=== PATIENT | female | born 1960 | race Caucasian/White ===

== ENCOUNTER 2016-09-12 08:11 | Outpatient (CLI) ==
[2016-06-24 14:13] VITALS: BMI 35.4
[2016-09-12 13:49] LABS: BASOPHILS # (AUTO) 0.1 K/uL (0-0.2); BASOPHILS % (AUTO) 1.5 % (0.0-3.0); EOSINOPHILS # (AUTO) 0.3 K/ul (0.0-0.7); EOSINOPHILS % (AUTO) 4.4 % (0.0-7.0); HEMATOCRIT 45.5 % (37.0-47.0); HEMOGLOBIN 15.7 g/dl (12.0-16.0); IMMATURE GRANULOCYTE % (AUTO) 0.4 % (0.0-5.0); LYMPHOCYTES # (AUTO) 2.4 K/uL (0.60-3.4); LYMPHOCYTES % (AUTO) 33.4 (10.0-50.0); MEAN CORPUSCULAR HEMOGLOBIN 31.8 pg (27.0-31.0); MEAN CORPUSCULAR HGB CONC 34.5 (31.8-35.4); MEAN CORPUSCULAR VOLUME 92.1 fl (81.0-99.0); MONOCYTES # (AUTO) 0.8 K/uL (0.4-2.0); MONOCYTES % (AUTO) 10.4 (0-10); NEUTROPHILS # (AUTO) 3.6 K/ul (2.0-6.9); NEUTROPHILS % (AUTO) 49.9; PLATELET COUNT 236 10^3/uL (140-440); RED BLOOD COUNT 4.94 10^6/ul (4.20-5.40); WHITE BLOOD COUNT 7.22 K/ul (4.6-10.2)
[2016-09-12 14:36] LABS: ALBUMIN 4.1 g/dL (3.4-5.0); ALBUMIN/GLOBULIN RATIO 1.52; ANION GAP 14.7; BILIRUBIN,TOTAL 0.51 mg/dL (0.00-1.20); BUN/CREATININE RATIO 17.33; CALCIUM 9.7 mg/dL (8.2-10.2); CHOL/HDL RATIO 3.5 (4.5-5.5); CREATININE 0.75 mg/dL (0.60-1.30); POTASSIUM 3.7 mmol/L (3.5-5.10); TOTAL PROTEIN 6.8 g/dL (6.4-8.2)
== END 2016-09-12 08:12 | disposition home or self-care (01) ==
LOC: LAB 08:11
PROVIDERS: ATTEND Nurse Practitioner Family
DX: E11.9 Type 2 diabetes mellitus without complications (principal); E78.1 Pure hyperglyceridemia; J44.9 Chronic obstructive pulmonary disease, unspecified
CPT/HCPCS: 36415; 80053; 80061; 83036; 84443; 85025

== ENCOUNTER 2016-11-15 12:05 | Outpatient (CLI) | payer OTHER ==
[2016-11-15 12:19] VITALS: BMI 35.4
== END 2016-11-15 12:06 ==
LOC: AMBL 12:05
PROVIDERS: ATTEND Emergency Medicine
DX: M25.512 Pain in left shoulder (principal)

== ENCOUNTER 2016-11-15 12:18 | Emergency (ER) ==
[2016-11-15 12:19] VITALS: BMI 35.4
[2016-11-15 12:25] VITALS: BP 144/73; TEMP 96.9
--- NOTE | 2016-11-15 12:32 | ED.PDOC ---
General ED Provider: Dr. ARRON ADAMS JR Chief Complaint: Shoulder Pain/Injury Stated Complaint: helped set up yard sale on monday--since has developed pain to left shoulder--has pain intermittently--when takes ibuprofen and applies heat --helps pain--. [ End ]96.9 62 20 96% 144/73 03/19. ibuprofen/heating pad. knee pain--back problems. states follows with [facility] FOR MEDS AND DIABETES - AKISTHESIS NOTE REPORT OF NOT ON MEDICAITONS Time Seen by Physician: 12:32 Mode of Arrival: Stretcher Information Source: Patient Exam Limitations: Clinical condition Nursing and Triage Documentation Reviewed and Agree: No Review of Systems - Review Of Systems Constitutional: Reports: Malaise Eyes: Reports: No symptoms Ears, Nose, Mouth, Throat: Reports: No symptoms Respiratory: Reports: No symptoms Cardiac: Reports: No symptoms GI: Reports: No symptoms : Reports: Pain (NONFOCAL NOT WORSE WITH BM NOR VOIDING, NOT SEXUALLY ACTIVE) Musculoskeletal: Reports: Joint pain Skin: Reports: No symptoms Neurological: Reports: No symptoms Endocrine: Reports: No symptoms Hematologic/Lymphatic: Reports: No symptoms All Other Systems: Other Past Medical History - Past Medical History Previously Healthy: No Endocrine: Reports: DM 2, Dyslipidemia Cardiovascular: Reports: None Respiratory: Reports: COPD, Pneumonia Hematological: Reports: None Gastrointestinal: Reports: None Genitourinary: Reports: None Neuro/Psych: Reports: None Musculoskeletal: Reports: None Cancer: Reports: None Last Menstrual Period: menopause Other Pertinent Past Medical History: BACK SURGERIES, KNEE REPLACEMENT.DM COPD - Surgical History General Surgical History: Reports: Orthopedic (KNEE REPLACEMENT), Back Surgery ( BACK SURGERIES), Unknown - Family History Family History: Reports: Unknown - Social History Smoking Status: Current every day smoker, Heavy tobacco smoker Hx Substance Use: No Alcohol Screening: None Physical Exam - Physical Exam Appearance: Well-appearing Pain Distress: Moderate Eyes: RYAN, EOMI, Conjunctiva clear ENT: Ears normal, Nose normal, Oropharynx normal Respiratory: Airway patent, Breath sounds clear, Breath sounds equal, Respirations nonlabored Cardiovascular: RRR, Pulses normal, No rub, No murmur GI/: Soft, Nontender (note complains of genital pain defer to obgyn), No masses, Bowel sounds normal, No Organomegaly Musculoskeletal: Limited ROM (left shoulder subscapularis tenderness) Skin: Warm, Dry, Normal color Neurological: Sensation intact, Motor intact, Reflexes intact, Cranial nerves intact, Alert, Oriented Psychiatric: Anxious (akethitic motions) Re-Evaluation - Re-Evaluation Time of Re-Evaluation: 14:14 Status: Unchanged (discuss schizophernia- hearing voices nothing from dr pedroza works not willing to go back) Critical Care Note - Critical Care Note Total Time (mins): 0 Course - Course Orders, Labs, Meds: Orders Category Date Time Status SHOULDER, LEFT MIN 2V Stat RADS 11/15/16 12:31 Completed Vital Signs: Temp Pulse Resp BP Pulse Ox 11/15/16 12:19 96.9 F L 62 20 144/73 H 96 Departure - Departure Time of Disposition: 14:01 Disposition: HOME SELF-CARE Discharge Problem: Injury of shoulder region, Pelvic pain in female Instructions: Shoulder Sprain (ED), Pelvic Pain in Women (ED) Condition: Good Pt referred to PMD for follow-up: Yes Additional Instructions: Naprosyn twice a day as needed for pain daily range of motion shoulder follow up PMD discuss shoulder pain and 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
--- NOTE | 2016-11-15 13:03 | DI ---
EXAM: LEFT SHOULDER HISTORY: Shoulder pain FINDINGS: Left shoulder three-view. Glenohumeral joint appears normal. There is mild osteoarthriti s of the acromioclavicular joint. No joint separation or dislocation. Soft tissues within normal l imits. IMPRESSION: Early AC joint osteoarthritis.
== END 2016-11-15 14:16 | disposition home or self-care (01) ==
LOC: ED 12:18
DX: S43.402A Unspecified sprain of left shoulder joint, initial encounter (principal); R10.2 Pelvic and perineal pain; X50.1XXA Overexertion from prolonged static or awkward postures, initial encounter; F17.210 Nicotine dependence, cigarettes, uncomplicated
CPT/HCPCS: 99282

== ENCOUNTER 2017-01-02 08:52 | Outpatient (CLI) ==
[2016-06-24 14:13] VITALS: BMI 35.4
--- NOTE | 2017-01-02 11:02 | MAMMO ---
EXAM: Digital screening mammogram HISTORY: Screening COMPARISON: 11/23/2015 FINDINGS: Digital MLO and CC views of the right and left breast were performed. There are scatter ed fibroglandular densities. There is no evidence for mass, asymmetry, distortion, or suspicious ca lcifications in either breast. IMPRESSION: 1. No evidence of malignancy in the right or left breast. 2. Annual screening mammogram is recommended in one year. BIRADS category 1, negative examination
== END 2017-01-02 08:53 ==
LOC: RAD 08:52
PROVIDERS: ATTEND Nurse Practitioner Family
DX: Z12.31 Encounter for screening mammogram for malignant neoplasm of breast (principal)

== ENCOUNTER 2017-02-15 11:18 | Outpatient (CLI) ==
[2017-02-15 13:11] LABS: ALBUMIN 4.1 g/dL (3.4-5.0); ALBUMIN/GLOBULIN RATIO 1.46; ANION GAP 16.7; BILIRUBIN,TOTAL 0.6 mg/dL (0.00-1.20); BUN/CREATININE RATIO 8.43; CALCIUM 10.1 mg/dL (8.2-10.2); CHOL/HDL RATIO 3.7 (4.5-5.5); CREATININE 0.83 mg/dL (0.60-1.30); POTASSIUM 3.7 mmol/L (3.5-5.10); TOTAL PROTEIN 6.9 g/dL (6.4-8.2)
== END 2017-02-15 11:19 | disposition home or self-care (01) ==
LOC: LAB 11:18
PROVIDERS: ATTEND Nurse Practitioner Family
DX: E11.9 Type 2 diabetes mellitus without complications (principal); E78.2 Mixed hyperlipidemia
CPT/HCPCS: 36415; 80053; 80061; 83036

== ENCOUNTER 2017-02-17 08:22 | Outpatient (CLI) ==
--- NOTE | 2017-02-17 09:30 | CT ---
EXAM: CT Abdomen without contrast. CT Pelvis without contrast. HISTORY: Lower abdominal pain. COMPARISON: 09/19/2010. MRI 10/13/2010. TECHNIQUE: Multiple axial images of the abdomen and pelvis were obtained without intravenous contra st. Images were reformatted in the coronal plane. FINDINGS: Please note that evaluation of the abdominal and pelvic structures is limited due to lack of intravenous contrast. No acute abnormality identified in the lung bases. Degenerative changes present in the spine. The liver, gallbladder, pancreas, spleen, and adrenal glands demonstrate normal contour. A 0.4 cm n onobstructing left renal calculus is present. No hydronephrosis or perinephric inflammation identif ied. Duodenal diverticulum noted. There is no evidence for bowel obstruction or acute inflammation. The appendix is normal. Colonic diverticulosis is present. Tiny fat-containing umbilical hernia is id entified. Uterus demonstrates normal contour. Urinary bladder is unremarkable. No free fluid or f ree air identified. Atherosclerotic calcifications are present. IMPRESSION: 1. No acute abnormality in the abdomen or pelvis. 2. Left nephrolithiasis. 3. Diverticulosis.
== END 2017-02-17 08:23 | disposition home or self-care (01) ==
LOC: RAD 08:22
PROVIDERS: ATTEND Nurse Practitioner Family
DX: R10.9 Unspecified abdominal pain (principal)

== ENCOUNTER 2017-05-03 13:59 | Emergency (ER) | payer OTHER ==
[2017-05-03 13:59] VITALS: BMI 35.4
[2017-05-03 14:13] VITALS: BP 144/61; TEMP 97
--- NOTE | 2017-05-03 14:49 | CT ---
EXAM: CT of the cervical spine without contrast History: Neck pain. Technique: Multiplanar CT images through the cervical spine were obtained without the administration of IV contrast Findings: Centrilobular emphysema seen within the visualized upper lungs. The visualized airway rem ains patent. There is cerumen within the left external auditory canal. No acute fracture or subluxa tion of the cervical spine. Moderate to severe disc space narrowing at C6-7. Mild to moderate disc space narrowing seen elsewhere. There are large anterior osteophytes from C3 through C7. C2-3: No significant bony central canal stenosis. Mild to moderate bilateral bony neural foraminal na rrowing secondary to uncovertebral facet hypertrophy. C3-4: Mild bony central canal stenosis. Moderate to severe bilateral bony neural foraminal narrowin g secondary to uncovertebral and facet hypertrophy. C4-5: Mild bony central canal stenosis. Moderate to severe right and moderate left bony neural fora rosa narrowing secondary to uncovertebral and facet hypertrophy. C5-6: Mild bony central canal stenosis. Moderate to severe right and moderate left bony neural fora rosa narrowing secondary to uncovertebral and facet hypertrophy. C6-7: Mild to moderate bony central canal stenosis. Severe bilateral bony neural foraminal narrowin g secondary to uncovertebral and facet hypertrophy. Impression: 1. No acute osseous abnormality of the cervical spine. 2. Degenerative changes with level by level analysis as detailed above. 3. Large anterior osteophytes.
--- NOTE | 2017-05-03 14:55 | CT ---
EXAM: CT thoracic spine. HISTORY: Back pain without trauma, mainly in the neck. TECHNIQUE: CT thoracic spine without contrast. Multiplanar images. FINDINGS: Comparison may be made to 06/24/2016. Bones appear demineralized. No acute fracture is obvious. There is moderate degenerative endplate d isease extending from mid spine into the lumbar level. Mild loss of vertebral body height at these a ffected levels probably most apparent at T11. There is mild central canal stenosis at T11/T12. No s coliosis. Bridging anterior and lateral osteophytic spurring of the spine is present. There is no p araspinal fluid collection. Degenerative changes appear more severe at the cervical level. Incidental findings include a 0.5 cm left renal calculus without evidence of hydronephrosis. IMPRESSION: 1. Redemonstration of moderate to severe degenerative endplate disease mid spine through lumbar leve l with no acute fracture identified. There is mild central canal stenosis at T11/T12. More severe d egenerative changes of the cervical level incidentally noted. 2. Left nephrolithiasis without hydronephrosis.
--- NOTE | 2017-05-03 15:02 | ED.PDOC ---
General ED Provider: Dr. DANIEL SALEH-ER Chief Complaint: Back Pain Stated Complaint: my neck and upper back have been hurting a long time --when i move them Time Seen by Physician: 15:02 Mode of Arrival: Ambulance Information Source: Patient, EMT Exam Limitations: No limitations [facility] Nursing and Triage Documentation Reviewed and Agree: Yes Musculoskeletal Complaint Exam - Neck Pain Complaint/Exam Mechanism of Injury: Reports: No known trauma Onset/Duration: mos Symptoms Are: Still present Timing: Constant Initial Severity: Mild Current Severity: Moderate Location: Reports: Discrete Character: Reports: Dull, Aching, Stiffness Aggravating: Reports: Position Associated Signs and Symptoms: Denies: Swelling, Redness, Bruising, Fever, Nuchal rigidity, Weakness, Headache, Paresthesia Meningitis Risk Factors: Reports: None Cervical Spine Injury Risk Factors: Reports: None Related Surgical History: Reports: None Carotid Bruit Present: No Pain on Passive Flexion: No Positive Kernig's Sign: No ROM Limited In: Present: Flexion, Extension Pain Located at: neck and upper back Focal Weakness: Present: None Focal Sensory Loss: Reports: None Differential Diagnoses: Arthritis, Sprain, Strain Review of Systems - Review Of Systems Constitutional: Reports: No symptoms Eyes: Reports: No symptoms Ears, Nose, Mouth, Throat: Reports: No symptoms Respiratory: Reports: No symptoms Cardiac: Reports: No symptoms GI: Reports: No symptoms : Reports: No symptoms Musculoskeletal: Reports: Back pain, Muscle pain, Neck pain Skin: Reports: No symptoms Neurological: Reports: No symptoms Endocrine: Reports: No symptoms Hematologic/Lymphatic: Reports: No symptoms All Other Systems: Reviewed and Negative Past Medical History - Past Medical History Previously Healthy: No Endocrine: Reports: DM 2, Dyslipidemia Cardiovascular: Reports: None Respiratory: Reports: COPD, Pneumonia Hematological: Reports: None Gastrointestinal: Reports: None Genitourinary: Reports: None Neuro/Psych: Reports: None Musculoskeletal: Reports: None Cancer: Reports: None Last Menstrual Period: none Other Pertinent Past Medical History: BACK SURGERIES, KNEE REPLACEMENT.DM COPD - Surgical History General Surgical History: Reports: Orthopedic (KNEE REPLACEMENT), Back Surgery ( BACK SURGERIES), Unknown - Family History Family History: Reports: Unknown - Social History Smoking Status: Current every day smoker, Heavy tobacco smoker Hx Substance Use: No Alcohol Screening: None Lives: With family Physical Exam - Physical Exam Appearance: Well-appearing, No pain distress, Well-nourished Pain Distress: Mild Eyes: RYAN, EOMI, Conjunctiva clear ENT: Ears normal, Nose normal, Oropharynx normal Neck: Supple Respiratory: Airway patent, Breath sounds clear, Breath sounds equal, Respirations nonlabored Cardiovascular: RRR, Pulses normal, No rub, No murmur GI/: Soft, Nontender, No masses, Bowel sounds normal, No Organomegaly Musculoskeletal: Limited ROM Skin: Warm, Dry, Normal color Neurological: Sensation intact, Motor intact, Reflexes intact, Cranial nerves intact, Alert, Oriented Psychiatric: Affect appropriate, Mood appropriate Interpretation - Radiology Interpretation Radiology Interpretation By: Radiologist Radiology Results: Negative Exam Interpreted: CT Scan Critical Care Note - Critical Care Note Total Time (mins): 0 Course - Course Orders, Labs, Meds: Orders Category Date Time Status CT CERVICAL SPINE W/O CONTRAST Stat RADS 05/03/17 14:[address] THORACIC SPINE W/O CONTRAST Stat RADS 05/03/17 14:01 Completed Vital Signs: Temp Pulse Resp BP Pulse Ox 05/03/17 14:07 97.0 F L 65 16 144/61 H 96 Departure - Departure Time of Disposition: 15:04 Disposition: HOME SELF-CARE Discharge Problem: Degenerative arthritis Qualifiers: Osteoarthritis location: spine Spinal region: cervical Spinal osteoarthritis complication: unspecified spinal osteoarthritis Qualified Code(s): M47.812 - Spondylosis without myelopathy or radiculopathy, cervical region Instructions: Arthritis (ED) Condition: Fair Pt referred to PMD for follow-up: Yes Additional Instructions: neurontin 100mg tid for pain#21--f/u wtih pcp Allergies/Adverse Reactions: Allergies azithromycin Adverse Reaction (Verified 05/03/17 14:13) Home Medications: Ambulatory Orders [place]-3 Fatty Acids/Fish Oil [Fish Oil 1,000 mg Capsule] 1,000 each PO DAILY Disposition Discussed With: Patient
== END 2017-05-03 15:21 | disposition home or self-care (01) ==
LOC: ED 13:59
DX: M47.812 Spondylosis without myelopathy or radiculopathy, cervical region (principal); F17.210 Nicotine dependence, cigarettes, uncomplicated; M54.2 Cervicalgia; M54.9 Dorsalgia, unspecified
CPT/HCPCS: 99282

== ENCOUNTER 2017-08-22 11:34 | Outpatient (CLI) | END 2017-08-22 11:35 | disposition home or self-care (01) | LOC: LAB 11:34 | PROVIDERS: ATTEND Nurse Practitioner Family | DX: E11.9 Type 2 diabetes mellitus without complications (principal); E78.1 Pure hyperglyceridemia; E78.5 Hyperlipidemia, unspecified; J44.9 Chronic obstructive pulmonary disease, unspecified | CPT/HCPCS: 36415; 80053; 80061; 83036; 85025 ==

== ENCOUNTER 2017-09-08 13:24 | Inpatient (IN) ==
[2017-09-08] MEDS ORDERED: SOLU-MEDROL 125 MG IVP STA (13:34)
[2017-09-08] MEDS ORDERED: DUONEB NEB STA (13:42)
--- NOTE | 2017-09-08 14:35 | ED.PDOC ---
General ED Provider: Dr. LUCIANA STEPHENS Chief Complaint: Shortness of Air Stated Complaint: shotness of breath Time Seen by Physician: 13:28 (seen with nursing staff) Mode of Arrival: Walk-In Information Source: Patient Exam Limitations: No limitations [facility] Nursing and Triage Documentation Reviewed and Agree: Yes Reviewed sepsis parameters & appropriate labs ordered?: Yes (presented ) System Inflammatory Response Syndrome: Not Applicable Sepsis Protocol: For patient's 13 years and over: Temp is 96.8 and below OR 101 and greater Pulse >90 BPM Resp >20/minute Acutely Altered Mental Status Are patient's symptoms suggestive of a new infection, such as: -Pneumonia -Skin, Soft Tissue -Endocarditis -UTI -Bone, Joint Infection -Implantable Device -Acute Abdominal Infection -Wound Infection -Meningitis -Blood Stream Catheter Infection -Unknown System Inflammatory Response Syndrome: Not Applicable Respiratory Complaint Exam - Respiratory Complaint/Exam Onset/Duration: 2 days Symptoms Are: Still present Timing: Intermittent Initial Severity: Moderate Current Severity: Moderate Location: Throat, Chest Character: Reports: Non-productive cough Aggravating: Reports: None Alleviating: Reports: Spontaneous resolution Associated Signs and Symptoms: Reports: Wheezing, URI, Nasal congestion Related History: Reports: Similar episode History of Healthcare-Acquired Pneumonia: No Related Surgical History: Reports: None Pulmonary Embolism Risk Factors: None Cardiac Risk Factors: Reports: None Pseudomonas Risk Factors: Reports: None Tuberculosis Risk Factors: Reports: None Status Asthmaticus Risk Factors: Reports: None Home Oxygen Use: No Recent Stress Test: No Recent Echo/LV Function: No Current Antibiotic Use: No Current Asthma Medication Use: No Respiratory Distress: None Inadequate Respiratory Effort: No Dysphagia Present: No Stridor Present: No JVD Present: No Accessory Muscle Use: No Retractions: Not Present Diminished Breath Sounds: No Prolonged Respiration: Expiratory phase Sinus Tenderness: None Grunting Respirations: No Kussmaul Respirations: No Differential Diagnoses: Pneumonia, Bronchitis Non-Traumatic Chest Pain Syncope: EKG Performed Review of Systems - Review Of Systems Constitutional: Reports: Chills Eyes: Reports: Pain Ears, Nose, Mouth, Throat: Reports: No symptoms Respiratory: Reports: Cough, Wheezing Cardiac: Reports: No symptoms GI: Reports: No symptoms : Reports: No symptoms Musculoskeletal: Reports: No symptoms Skin: Reports: No symptoms Neurological: Reports: No symptoms Endocrine: Reports: No symptoms Hematologic/Lymphatic: Reports: No symptoms All Other Systems: Reviewed and Negative Past Medical History - Past Medical History Previously Healthy: No Endocrine: Reports: DM 2, Dyslipidemia Cardiovascular: Reports: None Respiratory: Reports: COPD, Pneumonia Hematological: Reports: None Gastrointestinal: Reports: None Genitourinary: Reports: None Neuro/Psych: Reports: None Musculoskeletal: Reports: None Cancer: Reports: None Last Menstrual Period: menopause Other Pertinent Past Medical History: BACK SURGERIES, KNEE REPLACEMENT.DM COPD - Surgical History General Surgical History: Reports: Orthopedic (KNEE REPLACEMENT), Back Surgery ( BACK SURGERIES), Unknown - Family History Family History: Reports: Unknown - Social History Smoking Status: Current every day smoker, Heavy tobacco smoker Hx Substance Use: No Alcohol Screening: None Physical Exam - Physical Exam Appearance: Ill-appearing Ill-appearing: Mild Pain Distress: Mild Eyes: RYAN, EOMI, Conjunctiva clear ENT: Ears normal, Nose normal, Oropharynx normal Respiratory: Airway patent, Breath sounds clear, Breath sounds equal, Respirations nonlabored Cardiovascular: RRR, Pulses normal, No rub, No murmur GI/: Soft, Nontender, No masses, Bowel sounds normal, No Organomegaly Musculoskeletal: Normal strength, ROM intact, No edema, No calf tenderness Skin: Warm, Dry, Normal color Neurological: Sensation intact, Motor intact, Reflexes intact, Cranial nerves intact, Alert, Oriented Psychiatric: Affect appropriate, Mood appropriate Interpretation - Radiology Interpretation Radiology Interpretation By: Radiologist Radiology Results: No acute changes Physician Notification - Case Discussed Physician Notified: PMD Time of Notification: 15:00 (IF PE NEGATIVE MAY GO TO [place] ) Admit To: Inpatient Critical Care Note - Critical Care Note Total Time (mins): 0 Course - Course Hematology/Chemistry: 09/08/17 13:40 09/08/17 13:40 Orders, Labs, Meds: Lab Review 09/08/17 09/08/17 09/08/17 13:40 13:40 13:45 WBC 5.09 RBC 4.59 Hgb 14.5 Hct 41.3 MCV 90.0 MCH 31.6 H MCHC 35.1 RDW Coeff of Saba 13.0 Plt Count 193 Immature Gran % (Auto) 0.2 Neut % (Auto) 38.3 Lymph % (Auto) 39.7 Menard % (Auto) 16.3 H Eos % (Auto) 3.9 Baso % (Auto) 1.6 Immature Gran # (Auto) 0.0 Neut # (Auto) 2.0 Lymph # (Auto) 2.0 Menard # (Auto) 0.8 Eos # (Auto) 0.2 Baso # (Auto) 0.1 Puncture Site O2 Saturation ABG pH ABG pCO2 ABG pO2 ABG HCO3 ABG Total CO2 ABG Base Excess Checo Test FiO2 % Sodium 141 Potassium 3.9 Chloride 107 Carbon Dioxide 24 Anion Gap 13.9 BUN 13 Creatinine 0.81 Estimated GFR (MDRD) 73.00 BUN/Creatinine Ratio 16.04 Glucose 121 H Calcium 9.7 Total Bilirubin < 0.3 AST 18 ALT 24 Alkaline Phosphatase 46 Total Creatine Kinase 103 Troponin I < 0.0100 Total Protein 6.8 Albumin 3.9 Globulin 2.9 Albumin/Globulin Ratio 1.34 Influ A Molecular Assay Negative by naat Influ B Molecular Assay Negative by naat 09/08/17 13:55 WBC RBC Hgb Hct MCV MCH MCHC RDW Coeff of Saba Plt Count Immature Gran % (Auto) Neut % (Auto) Lymph % (Auto) Menard % (Auto) Eos % (Auto) Baso % (Auto) Immature Gran # (Auto) Neut # (Auto) Lymph # (Auto) Menard # (Auto) Eos # (Auto) Baso # (Auto) Puncture Site R rad O2 Saturation 94.0 L ABG pH 7.433 ABG pCO2 37.2 ABG pO2 69.0 L ABG HCO3 24.9 ABG Total CO2 26 ABG Base Excess 1 Checo Test + FiO2 % 21.0 Sodium Potassium Chloride Carbon Dioxide Anion Gap BUN Creatinine Estimated GFR (MDRD) BUN/Creatinine Ratio Glucose Calcium Total Bilirubin AST ALT Alkaline Phosphatase Total Creatine Kinase Troponin I Total Protein Albumin Globulin Albumin/Globulin Ratio Influ A Molecular Assay Influ B Molecular Assay Orders Category Date Time Status ABG DRAW REQUEST Stat CARDIO 09/08/17 13:34 Ordered EKG-(ED ONLY) Stat CARDIO 09/08/17 13:33 Ordered NEBULIZER TREATMENT Stat CARDIO 09/08/17 13:42 Ordered NPO REMINDER: IMAGING ONCE CARE 09/08/17 13:43 Ordered ED IV/MEDIPORT/POWERPORT .ONCE EMERGENCY 09/08/17 13:33 Active ABG Stat LAB 09/08/17 13:34 Ordered CBC W/ AUTO DIFF Stat LAB 09/08/17 13:33 Ordered COMPREHENSIVE METABOLIC PANEL Stat LAB 09/08/17 13:33 Ordered CREATINE KINASE Stat LAB 09/08/17 13:33 Ordered FLU A/B MOLECULAR Stat LAB 09/08/17 13:33 Uncollected MOLECULAR GROUP A STREP Stat LAB 09/08/17 13:33 Uncollected TROPONIN I Stat LAB 09/08/17 13:33 Ordered 0.9 % Sodium Chloride [Saline Flush] MEDS 09/08/17 13:33 Ordered 1 syr IVF PRN PRN Ipratropium/Albuterol Neb [Duoneb] MEDS 09/08/17 13:42 Stat 1 vial NEB ONCE STA Methylprednisolone Sod Succ/Pf [Solu-Medrol 125 mg] MEDS 09/08/17 13:34 Discontinued 125 [address] IVP ONCE [address] CHEST PE PROTOCOL Stat RADS 09/08/17 13:42 Ordered Medications Generic Name Dose Route Start Last Admin Trade Name Freq PRN Reason Stop Dose Admin Sodium Chloride 1 syr 09/08/17 13:33 09/08/17 14:05 Saline Flush IVF 1 syr PRN PRN Administration To flush IV Discontinued Medications Generic Name Dose Route Start Last Admin Trade Name Freq PRN Reason Stop Dose Admin Albuterol/Ipratropium 1 vial 09/08/17 13:42 09/08/17 14:08 Duoneb NEB 09/08/17 13:43 1 vial ONCE STA Administration Methylprednisolone Sodium Succinate 125 mg 09/08/17 13:34 09/08/17 14:05 Solu-Medrol 125 Mg IVP 09/08/17 13:35 125 mg ONCE STA Administration Vital Signs: Temp Pulse Resp BP Pulse Ox 09/08/17 13:25 97.3 F L 63 17 150/72 H 94 L Departure - Departure Time of Disposition: 14:38 Disposition: HOME SELF-CARE Discharge Problem: Shortness of breath, EKG abnormalities Instructions: Dyspnea (ED), Shortness of Breath (ED) Condition: Good Pt referred to PMD for follow-up: Yes IPMP verified?: No Additional Instructions: Please call your Family Physician as soon as possible to schedule a follow-up appointment. Allergies/Adverse Reactions: Allergies azithromycin Adverse Reaction (Verified 09/08/17 13:39) Home Medications: Ambulatory Orders [place]-3 Fatty Acids/Fish Oil [Fish Oil 1,000 Mg Capsule] 1,000 each PO BID 02/20 Multivitamin [Multi-Vitamin Daily] 1 each PO d 08/24/17 Disposition Discussed With: Patient
--- NOTE | 2017-09-08 15:04 | CT ---
EXAM: CTA chest for PE HISTORY: Shortness of breath for 3-4 days COMPARISON: CT chest 06/24/2016 and 07/28/2010 TECHNIQUE: CTA of the chest was performed from the lung apices to the upper abdomen after IV contras t was administered using PE protocol. 3-D imaging was also provided. FINDINGS: There is no filling defect in the pulmonary arteries to the level of the subsegmental pulm onary arteries. The heart is normal without signs of ventricular strain. The aorta is normal. The heart is normal without pericardial effusion. There are nonpathologically enlarged mediastinal and h ilar lymph nodes. Thyroid is normal. There is no pneumothorax or pleural effusion. There is consolidation in the lingula. There is minim al lower lobe airway thickening with no acute consolidation. There is no abnormal ground-glass or no dule. Central airways are patent. Soft tissues in the upper abdomen are unremarkable. The osseous structures demonstrate degenerative disease. IMPRESSION: 1. There is no pulmonary embolism. 2. Minimal consolidation in the lingula and minimal lower lobe airway thickening suggestive of small airways inflammation versus infection. 3. No additional abnormality or significant interval change.
[2017-09-08 15:51] VITALS: BMI 36.1
[2017-09-08] MEDS: NEURONTIN PO SCH ×2 (15:57→21:54)
[2017-09-08] MEDS: SODIUM CHLORIDE 0.9%-KCL 20 MEQ 1,000 ML IV SCH (15:57)
[2017-09-08] MEDS: PROTONIX PO SCH (16:46)
[2017-09-08] MEDS: ROCEPHIN 1 GM in SODIUM CHLORIDE 50 ML IV SCH (16:46)
[2017-09-08] MEDS: TYLENOL PO PRN ×2 (16:57→23:30)
[2017-09-08] MEDS: GLUCOPHAGE PO SCH (16:58)
[2017-09-08] MEDS ORDERED: DUONEB NEB SCH (18:00)
[2017-09-08] MEDS: DUONEB NEB SCH (20:45)
[2017-09-08] MEDS ORDERED: NON-FORMULARY MEDICATION (Lovastatin [Lovastatin] 10 MG) PO SCH (21:00)
[2017-09-08] MEDS ORDERED: OMEGA PO SCH (21:00)
[2017-09-08] MEDS ORDERED: [UNRECOGNIZED DRUG - OTHER] PO SCH (21:00)
[2017-09-08] MEDS ORDERED: FISH OIL PO SCH (21:00)
[2017-09-08] MEDS ORDERED: FATTY ACIDS PO SCH (21:00)
[2017-09-08] MEDS: OMEGA-3 FISH OIL PO SCH (21:54)
[2017-09-08] MEDS: MEVACOR PO SCH (21:54)
[2017-09-08] MEDS: SOLU-MEDROL 40 MG IVP SCH (22:40)
[2017-09-09] MEDS: SODIUM CHLORIDE 0.9%-KCL 20 MEQ 1,000 ML IV SCH (05:05)
[2017-09-09] MEDS: DUONEB NEB SCH ×4 (05:40→20:30)
[2017-09-09] MEDS: SOLU-MEDROL 40 MG IVP SCH ×3 (06:01→20:28)
[2017-09-09] MEDS: PROTONIX PO SCH (06:01)
[2017-09-09] MEDS: HUMULIN R SUBCUT PRN ×4 (06:02→20:44)
[2017-09-09] MEDS: NEURONTIN PO SCH ×3 (08:53→20:27)
[2017-09-09] MEDS: ROCEPHIN 1 GM in SODIUM CHLORIDE 50 ML IV SCH (08:53)
[2017-09-09] MEDS: OMEGA-3 FISH OIL PO SCH ×2 (08:53→20:27)
[2017-09-09] MEDS: MULTIVITAMIN TABLET PO SCH (08:54)
[2017-09-09] MEDS: CELEXA PO SCH (08:54)
[2017-09-09] MEDS: TYLENOL PO PRN ×2 (08:54→17:38)
[2017-09-09] MEDS: TRIGLIDE PO SCH (08:54)
[2017-09-09] MEDS ORDERED: NON-FORMULARY MEDICATION (Citalopram Hydrobromide [Celexa] 40 MG) PO SCH (09:00)
[2017-09-09] MEDS: SODIUM CHLORIDE 1,000 ML IV SCH (15:18)
[2017-09-09] MEDS: LOVENOX SUBCUT SCH (15:55)
[2017-09-09] MEDS: MEVACOR PO SCH (20:27)
[2017-09-10] MEDS: SODIUM CHLORIDE 1,000 ML IV SCH ×3 (03:47→17:50)
[2017-09-10] MEDS: SOLU-MEDROL 40 MG IVP SCH ×3 (04:00→20:08)
[2017-09-10] MEDS: DUONEB NEB SCH ×4 (05:48→20:12)
[2017-09-10] MEDS: PROTONIX PO SCH (05:49)
[2017-09-10] MEDS: HUMULIN R SUBCUT PRN ×4 (05:59→20:08)
[2017-09-10] MEDS: ROCEPHIN 1 GM in SODIUM CHLORIDE 50 ML IV SCH (09:10)
[2017-09-10] MEDS: CELEXA PO SCH (09:13)
[2017-09-10] MEDS: LOVENOX SUBCUT SCH (09:13)
[2017-09-10] MEDS: OMEGA-3 FISH OIL PO SCH ×2 (09:14→20:07)
[2017-09-10] MEDS: NEURONTIN PO SCH ×3 (09:14→20:08)
[2017-09-10] MEDS: MULTIVITAMIN TABLET PO SCH (09:14)
[2017-09-10] MEDS: TRIGLIDE PO SCH (09:14)
[2017-09-10] MEDS: TYLENOL PO PRN ×2 (10:53→20:08)
--- NOTE | 2017-09-10 16:13 | DI ---
EXAM: PA and lateral views of the chest HISTORY: Pneumonia COMPARISON: Chest x-ray 10/13/2014 FINDINGS: The cardiomediastinal silhouette is unchanged. There is no pneumothorax or pleural effusi on. There is no consolidation, nodule or mass. The osseous structures demonstrate degenerative dise ase of the spine. IMPRESSION: No acute cardiopulmonary process
[2017-09-10] MEDS: GLUCOPHAGE PO SCH (17:26)
[2017-09-10] MEDS: MEVACOR PO SCH (20:07)
[2017-09-11] MEDS: SOLU-MEDROL 40 MG IVP SCH ×2 (04:00→15:25)
[2017-09-11] MEDS: DUONEB NEB SCH ×3 (05:31→14:27)
[2017-09-11] MEDS: PROTONIX PO SCH (05:34)
[2017-09-11] MEDS: HUMULIN R SUBCUT PRN ×2 (05:38→12:37)
[2017-09-11] MEDS: SODIUM CHLORIDE 1,000 ML IV SCH (07:32)
[2017-09-11] MEDS: ROCEPHIN 1 GM in SODIUM CHLORIDE 50 ML IV SCH (08:52)
[2017-09-11] MEDS: OMEGA-3 FISH OIL PO SCH (08:53)
[2017-09-11] MEDS: CELEXA PO SCH (08:53)
[2017-09-11] MEDS: GLUCOPHAGE PO SCH (08:53)
[2017-09-11] MEDS: NEURONTIN PO SCH (08:54)
[2017-09-11] MEDS: LOVENOX SUBCUT SCH (08:54)
[2017-09-11] MEDS: TRIGLIDE PO SCH (08:54)
[2017-09-11] MEDS: MULTIVITAMIN TABLET PO SCH (08:55)
--- NOTE | 2017-09-11 10:54 | HP ---
DATE OF SERVICE: 09/08/17 CHIEF COMPLAINT: Cough, congestion and shortness of breath HISTORY OF PRESENT ILLNESS: 57 year old female with multiple medical problems started coughing and congestion 3-4 days with lots of sinus drainage. Shortness of breath was getting worse today and getting yellow/green phlegm so as she rides the Smart [employer] the patient came to the emergency room. On arrival it was noted the patient was short of breath and was seen by Dr. Gonzalez in emergency room. WBC was normal. ABG showed the pH 7.433, pCO2 37.2, pO2 69. Troponin is negative. EKG normal sinus. Chest x-ray showed the pneumonia. At that time because of the community acquired pneumonia and COPD exacerbation and bronchitis and as the patient was short of breath. CT chest was done with PE protocol which was negative for the PE but it did show some infiltration and some pleural effusion. At that time she was admitted to the hospital with COPD exacerbation and pneumonia with IV antibiotics and breathing treatments. REVIEW OF SYSTEMS: CONSTITUTIONAL: No fever, no chills. Weakness and tiredness. HEENT: Normal. ENDOCRINE: No weight gain; no weight loss. CVS: No chest pain. No PND, no orthopnea. Shortness of breath. No PND, no orthopnea. RESPIRATORY: Cough, Congestion. No hemoptysis. GI: No nausea, no vomiting. No abdominal pain. No melena. : No hematuria. No polyuria. MUSCULOSKELETAL: No joint swelling. PSYCHIATRIC: Not anxious. No depression. No suicidal thoughts. No homicidal thoughts. SKIN: Intact, no open lesions. PAST MEDICAL HISTORY: Dyslipidemia CVA 6 years ago History of migraines COPD Becerra's esophagus GERD Osteoarthritis DJD spine Diabetes Depression History of substance use PAST SURGICAL HISTORY: History of heart cath Lumbar laminectomy Carpal tunnel surgery PERSONAL HISTORY: Family history is significant for diabetes and prostate cancer. MEDICATIONS: [place] 3 fatty acid Albuterol Fenofibrate Metformin Lovastatin Ibuprofen Citalopram Hydroxyzine Neurontin Multivitamin ALLERGIES: Azithromycin PHYSICAL EXAMINATION: V/S: Blood pressure 150/72, respiratory rate 17, heart rate 63, temperature 97.3 and saturation 94 on room air. HEENT: Atraumatic, normocephalic. No scleral icterus. Mucosa dry. NECK: Supple. No JVD, no bruit. No lymphadenopathy. No thyromegaly. HEART: S1, S2 normal. No murmur. No cyanosis or clubbing. No ascites. LUNGS: Decreased and basilar crackles. Clear to auscultation. No rales or rhonchi. ABDOMEN: Soft, nontender. Bowel sounds are active. No CVA tenderness. No rigidity or guarding. EXTREMITIES: No pedal edema. No cyanosis or clubbing MUSCULOSKELETAL: Normal joints, no swelling. NEUROLOGIC: The patient is awake and alert. SKIN: Intact; no open lesions. LYMPHATIC: No lymph nodes palpable. LABS: Sodium 141, potassium 3.9, chloride 107, bicarb 24, BUN 13, creatinine 0.81, glucose 121, WBC 5.09, hgb 14.2, hct 41.3. plt count 193. ASSESSMENT: 1. Community acquired pneumonia 2. COPD exacerbation secondary to the community acquired pneumonia 3. Hypertension 4. Dyslipidemia 5. Diabetes 6. Osteoarthritis 7. DJD spine PLAN: 1. Admit patient to the regular floor 2. CBC and CMP today and daily 3. Cardiac enzymes and troponin 4. Solu-Medrol 40mg Q 8 hours 5. Metformin 6. DUO NEBS 7. Rocephin 1 gram daily 8. Daily I&O's 9. IV fluids at 75ml per hour TIME SPENT: MORE THAN 75 minutes MTDD
[2017-09-11] MEDS: TYLENOL PO PRN (12:38)
[2017-09-11 14:14] VITALS: BP 126/66; TEMP 98.3
--- NOTE | 2017-09-11 14:51 | PN ---
DATE OF SERVICE: 09/09/17 SUBJECTIVE: The patient was admitted with pneumonia and COPD exacerbation and bronchitis. Feeling somewhat better. REVIEW OF SYSTEMS: CONSTITUTIONAL: No fever, no chills. HEENT: Normal. ENDOCRINE: No weight gain, no weight loss. CVS: No angina symptoms. No CHF symptoms. No palpitations. No atypical chest pain for CAD. No shortness of breath. No PND, no orthopnea. RESPIRATORY: Cough and congested. no hemoptysis. GI: No nausea, no vomiting. No abdominal pain. : No hematuria. No polyuria. MUSCULOSKELETAL: No joint swelling. PSYCHIATRIC: Not anxious. No depression. No suicidal thoughts. No homicidal thoughts. SKIN: Intact. No rash. PHYSICAL EXAMINATION: V/S: Blood pressure 118/69, respiratory rate 20, heart rate 54 and temperature 97.7 and saturation 92 on 2 liters. HEENT: Normocephalic, atraumatic. Mucosa dry. Pallor positive. No icterus. NECK: Supple. No JVD, no carotid bruit. No lymphadenopathy. LUNGS: Decreased and basilar crackles. No rales or rhonchi. HEART: S1, S2 normal. No S3. No murmur, gallop or regurgitation. ABDOMEN: Soft, nontender. Bowel sounds active. No rigidity. No rebound or guarding. No CVA tenderness. EXTREMITIES: No pedal edema. No clubbing or cyanosis MUSCULOSKELETAL: No joint swelling. NEUROLOGIC: Awake, alert, oriented times three. No focal deficit. LYMPHATIC: No lymph nodes palpable. SKIN: Intact. LABS: WBC 10.67, hgb 13.8, hct 39.8, plt count 210, sodium 140, potassium 4.5, chloride 107, bicarb 23, BUN 13, creatinine 0.73 and glucose 181. ASSESSMENT: 1. COPD exacerbation secondary to pneumonia 2. Diabetes 3. Hypertension 4. Dyslipidemia 5. Osteoarthritis 6. DJD spine 7. Bipolar 8. Depression PLAN: 1. Continue the Rocephin 2. Solu-Medrol 40mg Q 12 hours 3. DUO NEBS 4. Keep holding Metformin as patient was given IV contrast 5. Continue IV fluids at 75ml per hour 6. Daily I&O's 7. Lovenox for the DVT prophylaxis TIME SPENT: More than 35 minutes MTDD
--- NOTE | 2017-09-11 15:03 | PN ---
DATE OF SERVICE: 09/10/17 SUBJECTIVE: Coughing and congestion is present, getting yellow/green phlegm. Shortness of breath is improved. The patient's son is in the room. Asking all the questions and answered them. REVIEW OF SYSTEMS: CONSTITUTIONAL: No fever, no chills. HEENT: Normal. ENDOCRINE: No weight gain, no weight loss. CVS: No angina symptoms. No CHF symptoms. No palpitations. No atypical chest pain for CAD. No shortness of breath. No PND, no orthopnea. RESPIRATORY: No cough, no hemoptysis. GI: No nausea, no vomiting. No abdominal pain. : No hematuria. No polyuria. MUSCULOSKELETAL: No joint swelling. PSYCHIATRIC: Not anxious. No depression. No suicidal thoughts. No homicidal thoughts. SKIN: Intact. No rash. PHYSICAL EXAMINATION: V/S: Blood pressure 109/60, respiratory rate 20, heart rate 65, temperature 98.1 with saturation 93% on 2 liters. HEENT: Normocephalic, atraumatic. Mucosa dry. NECK: Supple. No JVD, no carotid bruit. No lymphadenopathy. LUNGS: Decrease entry and clear to auscultation. No rales or rhonchi. HEART: S1, S2 normal. No S3. No murmur, gallop or regurgitation. ABDOMEN: Soft, nontender. Bowel sounds active. No rigidity. No rebound or guarding. No CVA tenderness. EXTREMITIES: No pedal edema. No clubbing or cyanosis MUSCULOSKELETAL: No joint swelling. NEUROLOGIC: Awake, alert, oriented times three. No focal deficit. LYMPHATIC: No lymph nodes palpable. SKIN: Intact. LABS: WBC 14.53, hgb 14.0, hct 40.3, plt count 226, sodium 141, potassium 4.0, chloride 105, bicarb 24, BUN 13, creatinine 0.72 and glucose 207. ASSESSMENT: 1. COPD exacerbation secondary to pneumonia, community acquired 2. Diabetes 3. Hypertension 4. History of CVA 5. COPD 6. Becerra's esophagus 7. Osteoarthritis 8. DJD spine PLAN: 1. Will get chest x-ray today 2. Out of bed to chair activity as tolerated 3. Continue Rocephin 1 gram daily 4. Lovenox for the DVT prophylax 5. Accu-checks with coverage 6. Daily I&O's TIME SPENT: More than 35 minutes MTDD
--- NOTE | 2017-10-05 14:52 | DS ---
DATE OF SERVICE: 09/11/17 FINAL DIAGNOSIS: 1. COPD EXACERBATION SECONDARY TO LINGULAR PNEUMONIA 2. HYPOXEMIA NEEDING HOME OXYGEN 3. DYSLIPIDEMIA 4. CVA SIX YEARS AGO 5. HISTORY OF MIGRAINES 6. BURGER'S ESOPHAGUS 7. TUBAL LIGATION 8. OSTEOARTHRITIS 9. DJD SPINE 10. DIABETES MELLITUS 11. DEPRESSION 12. HISTORY OF SUBSTANCE USE TREATMENT 13. HISTORY OF HEART CATHETERIZATION 14. LUMBAR LAMINECTOMY 15. ULNAR NERVE SURGERY 16. CARPAL TUNNEL SURGERY DISCHARGE INSTRUCTIONS: 1. Discharge the patient home. 2. Oxygen 2L/nasal cannula continuously. Oxygen has been helping the patient when she was ambulating. Oxygen supplier is [facility] 3. Do not take Ibuprofen while you are taking Prednisone (risk of GI irritation /bleeding). 4. An appointment is scheduled with Dr. Jones on 09/15/17 at 9 a.m. MEDICATIONS AT DISCHARGE: Albuterol Celexa Fenofibrate Neurontin Hydroxyzine Ibuprofen Lovastatin Metformin has been sent NEW PRESCRIPTIONS: Omnicef 300 mg b.i.d. for 5 days Prednisone 10 mg twice a day Nicoderm 21 mg apply one patch daily to skin (to help with smoking cessation) DIET INSTRUCTIONS: 1800 ADA diet. ACTIVITY: Gradually resume as tolerated. SMOKING: COPD needing oxygen Advised to stop smoking. DISEASE SPECIFIC EDUCATION: Smoking cessation advised strongly. Risk of lung cancer discussed. The patient verbalized understanding and promised to work on it. Do not smoke with oxygen in place as it is highly inflammable. HOSPITAL COURSE: 57-year-old female came to the emergency room with cough and congestion, shortness of breath found to have left middle lobe lingular pneumonia. ABGs showed pH 7.433, pc02 37.2, p02 69.0. Admitted to the hospital, started on Rocephin 1 gm daily and Lovenox for DVT prophylaxis, Accu-Cheks with coverage, Duonebs, Solu-Medrol 40 mg q.12 hours and IV fluids. With the given treatment, the patient was up and about walking, did not have any problems or complications. Repeat chest x-ray showed improvement in the pneumonia. We had the patient walk today. The saturation dropped to below 90. At that time, the patient immediately qualified for home oxygen. As the patient was using the oxygen while in the hospital, feeling better and able to ambulate more, she was provided with oxygen from [employer]. Advised strictly not to use oxygen while smoking as oxygen is highly inflammable. TIME SPENT: MORE THAN 65 MINUTES MTDD
== END 2017-09-11 16:25 | disposition home or self-care (01) | DRG 194 ==
LOC: ED 13:24 → MEDSURG A 15:12
PROVIDERS: ADMIT Emergency Medicine; ATTEND Emergency Medicine
DX: J18.9 Pneumonia, unspecified organism (principal); J91.8 Pleural effusion in other conditions classified elsewhere; J44.1 Chronic obstructive pulmonary disease with (acute) exacerbation; J44.0 Chronic obstructive pulmonary disease with (acute) lower respiratory infection; J20.9 Acute bronchitis, unspecified; R06.02 Shortness of breath; R94.31 Abnormal electrocardiogram [ECG] [EKG]; E11.9 Type 2 diabetes mellitus without complications; F19.11 Other psychoactive substance abuse, in remission; R09.02 Hypoxemia; I10 Essential (primary) hypertension; E78.5 Hyperlipidemia, unspecified; F31.9 Bipolar disorder, unspecified; F32.9 Major depressive disorder, single episode, unspecified; K22.70 Barrett's esophagus without dysplasia; M19.90 Unspecified osteoarthritis, unspecified site; M47.9 Spondylosis, unspecified; F17.210 Nicotine dependence, cigarettes, uncomplicated; Z79.84 Long term (current) use of oral hypoglycemic drugs; Z79.899 Other long term (current) drug therapy; Z86.73 Personal history of transient ischemic attack (TIA), and cerebral infarction without residual deficits; Z86.69 Personal history of other diseases of the nervous system and sense organs; Z98.61 Coronary angioplasty status; Z98.890 Other specified postprocedural states; Z98.51 Tubal ligation status
CPT/HCPCS: 36415; 80053; 82550; 82803; 82962; 84484; 85025; 85379; 87502; 87651; 93005; 93010; 94640; 94761; 96374; 99284

== ENCOUNTER 2017-11-29 10:36 | Outpatient (CLI) | payer OTHER | END 2017-11-29 10:37 | disposition home or self-care (01) | LOC: RHC-LAB 10:36 | PROVIDERS: ATTEND Nurse Practitioner Family | DX: E11.9 Type 2 diabetes mellitus without complications (principal); F32.9 Major depressive disorder, single episode, unspecified; E78.1 Pure hyperglyceridemia | CPT/HCPCS: 36415; 80053; 80061; 83036; 85025 ==

== ENCOUNTER 2018-02-07 07:39 | Outpatient (CLI) ==
[2018-01-31 13:56] VITALS: BMI 36.1
--- NOTE | 2018-02-09 10:27 | MAMMO ---
EXAM: Digital screening mammogram with tomosynthesis HISTORY: Screening COMPARISON: 01/02/17 FINDINGS: Digital MLO and CC views of the right and left breast were performed. Tomosynthesis was performed. Computer aided detection was utilized. .There are scattered fibroglandular densities. P ossible indeterminate calcifications right breast anterior to middepth, seen on the MLO view. There is no evidence for mass, asymmetry, distortion, or suspicious calcifications in the left breast. IMPRESSION: 1. Possible calcifications right breast. Diagnostic mammogram recommend for further evaluation 2. Negative left breast mammogram. BIRADS category 0, incomplete
== END 2018-02-07 07:40 | disposition home or self-care (01) ==
LOC: RAD 07:39
PROVIDERS: ATTEND Nurse Practitioner Family
DX: Z12.31 Encounter for screening mammogram for malignant neoplasm of breast (principal)
CPT/HCPCS: 77067

== ENCOUNTER 2018-02-14 08:31 | Outpatient (POV) ==
[2018-01-31 13:56] VITALS: BMI 36.1
== END 2018-02-14 17:00 ==
LOC: OUTPT 08:31
PROVIDERS: ATTEND Otolaryngology
DX: R42 Dizziness and giddiness (principal)

== ENCOUNTER 2018-02-16 09:57 | Outpatient (CLI) ==
[2018-01-31 13:56] VITALS: BMI 36.1
--- NOTE | 2018-02-16 10:35 | MAMMO ---
EXAM: Right digital diagnostic mammogram (2-D and 3-D History: Right breast calcifications. Comparison: Bilateral mammogram 02/07/2018 Findings: Right breast density is scattered. Additional views of the right breast were obtained. The re are benign right breast calcifications. No suspicious calcifications. No suspicious masses. Impression: Benign right mammogram. Recommend return to routine screening mammography schedule. BIRADS 2
== END 2018-02-16 09:58 | disposition home or self-care (01) ==
LOC: RAD 09:57
PROVIDERS: ATTEND Nurse Practitioner Family
DX: R92.1 Mammographic calcification found on diagnostic imaging of breast (principal)

== ENCOUNTER 2018-02-28 09:19 | Outpatient (CLI) ==
[2018-01-31 13:56] VITALS: BMI 36.1
== END 2018-02-28 09:20 | disposition home or self-care (01) ==
LOC: RHC-LAB 09:19
PROVIDERS: ATTEND Nurse Practitioner Family
DX: E11.9 Type 2 diabetes mellitus without complications (principal); E78.2 Mixed hyperlipidemia; E78.1 Pure hyperglyceridemia
CPT/HCPCS: 36415; 80053; 80061; 83036

== ENCOUNTER 2018-03-02 11:15 | Outpatient (CLI) ==
[2018-01-31 13:56] VITALS: BMI 36.1
--- NOTE | 2018-03-02 12:57 | CT ---
Exam: CT of the abdomen and pelvis without contrast History: Abdominal pain Technique: [address] of the abdomen and pelvis without intravascular contrast FINDINGS: The lung bases are clear aside from scarring in the lingula. No significant liver abnormal ity. The adrenals, pancreas and spleen are unremarkable. The stomach and hiatus are unremarkable.The gallbladder appears normal. There is a 7.6 mm nonobstructing calculus in the left kidney. The kidne ys and collecting system are unremarkable otherwise. The appendix is normal. Atherosclerotic calcif ication of the aorta without aneurysm. Bowel loops demonstrate normal caliber. No inflamatory change seen in the mesentery or retroperitoneum. Mild inflammation adjacent to the proximal sigmoid colon with sigmoid colonic diverticula. Normal pe lvic genitourinary structures. Impression: 1. Mild inflammation of the sigmoid mesentery with central offending diverticula consistent with acu te diverticulitis. 2. Single nonobstructing calculus of the left kidney 3. No bowel or urinary obstruction
== END 2018-03-02 11:16 | disposition home or self-care (01) ==
LOC: RAD 11:15
PROVIDERS: ATTEND Nurse Practitioner Family
DX: R10.9 Unspecified abdominal pain (principal); R10.817 Generalized abdominal tenderness; R19.7 Diarrhea, unspecified

== ENCOUNTER 2018-05-18 11:49 | Emergency (ER) | payer OTHER ==
[2018-05-18 12:01] VITALS: BP 164/84; TEMP 98.8; BMI 37.8
--- NOTE | 2018-05-18 12:18 | ED.PDOC ---
General ED Provider: Dr. BEVERLEY HALLMAN Chief Complaint: Cellulitis Stated Complaint: Left lower jaw swelling - noted last night, increased this AM. Slight pain with touching area. No dental complaints. Time Seen by Physician: 12:16 Mode of Arrival: Walk-In Information Source: Patient Primary Care Provider: ANA NEGRETE Nursing and Triage Documentation Reviewed and Agree: Yes Does patient meet sepsis criteria?: No System Inflammatory Response Syndrome: Not Applicable Sepsis Protocol: For patient's 13 years and over: Temp is 96.8 and below OR 101 and greater Pulse >90 BPM Resp >20/minute Acutely Altered Mental Status Are patient's symptoms suggestive of a new infection, such as: -Pneumonia -Skin, Soft Tissue -Endocarditis -UTI -Bone, Joint Infection -Implantable Device -Acute Abdominal Infection -Wound Infection -Meningitis -Blood Stream Catheter Infection -Unknown Review of Systems - Review Of Systems Constitutional: Reports: Malaise (Is diabetic; hasn't eaten this AM) Skin: Reports: Lumps (Lower left jaw noted last night increased this am, slight tenderness) Hematologic/Lymphatic: Reports: Swollen glands (Lower Left jaw/neck) All Other Systems: Reviewed and Negative Past Medical History - Past Medical History Previously Healthy: No Endocrine: Reports: DM 2, Dyslipidemia Cardiovascular: Reports: None Respiratory: Reports: COPD, Pneumonia Hematological: Reports: None Gastrointestinal: Reports: None Genitourinary: Reports: None Neuro/Psych: Reports: None Musculoskeletal: Reports: None Cancer: Reports: None Last Menstrual Period: NA Other Pertinent Past Medical History: BACK SURGERIES, KNEE REPLACEMENT.DM COPD - Surgical History General Surgical History: Reports: Orthopedic (KNEE REPLACEMENT), Back Surgery ( BACK SURGERIES), Unknown - Family History Family History: Reports: Unknown - Social History Smoking Status: Former smoker Hx Substance Use: No Alcohol Screening: None Physical Exam - Physical Exam Appearance: Well-appearing Ill-appearing: None Pain Distress: None ENT: Ears normal Neck: Supple Respiratory: Airway patent, Breath sounds clear, Breath sounds equal, Respirations nonlabored Cardiovascular: RRR Skin: Warm, Dry, Normal color Neurological: Sensation intact, Motor intact, Alert, Oriented Psychiatric: Affect appropriate, Mood appropriate Critical Care Note - Critical Care Note Total Time (mins): 7 Course - Course Vital Signs: Temp Pulse Resp BP Pulse Ox 05/18/18 11:56 98.8 F 65 18 164/84 H 94 L Departure - Departure Time of Disposition: 12:19 Disposition: HOME SELF-CARE Discharge Problem: Cellulitis Qualifiers: Site of cellulitis: neck Qualified Code(s): L03.221 - Cellulitis of neck Instructions: Cellulitis (ED) Condition: Good Pt referred to PMD for follow-up: Yes (Follow up with primary care) IPMP verified?: No (Narcotic not prescribed) Prescriptions: Cephalexin [Keflex] 500 mg PO TID #15 capsule Allergies/Adverse Reactions: Allergies azithromycin Adverse Reaction (Verified 05/18/18 11:54) Home Medications: Ambulatory Orders Ord-3 Fatty Acids/Fish Oil [Fish Oil 1,000 Mg Capsule] 1,000 each PO BID 02/20 Multivitamin [Multi-Vitamin Daily] 1 each PO DAILY 08/24/17 Cephalexin [Keflex] 500 mg PO TID #15 capsule 05/18/18
== END 2018-05-18 12:40 | disposition home or self-care (01) ==
LOC: ED 11:49
DX: L03.221 Cellulitis of neck (principal)
CPT/HCPCS: 82962; 99282

== ENCOUNTER 2018-08-28 08:42 | Outpatient (CLI) | END 2018-08-28 08:43 | disposition home or self-care (01) | LOC: RHC-LAB 08:42 | PROVIDERS: ATTEND Nurse Practitioner Family | DX: E11.9 Type 2 diabetes mellitus without complications (principal); E78.2 Mixed hyperlipidemia; E78.1 Pure hyperglyceridemia; J44.9 Chronic obstructive pulmonary disease, unspecified; F32.9 Major depressive disorder, single episode, unspecified | CPT/HCPCS: 36415; 80053; 80061; 83036; 84443; 85025 ==

== ENCOUNTER 2018-11-28 08:10 | Outpatient (CLI) | END 2018-11-28 08:11 | disposition home or self-care (01) | LOC: RHC-LAB 08:10 | PROVIDERS: ATTEND Nurse Practitioner Family | DX: E11.9 Type 2 diabetes mellitus without complications (principal); F32.9 Major depressive disorder, single episode, unspecified; E78.1 Pure hyperglyceridemia; E78.2 Mixed hyperlipidemia | CPT/HCPCS: 36415; 80053; 80061; 83036; 84443 ==

== ENCOUNTER 2018-12-11 08:01 | Emergency (ER) | payer OTHER ==
[2018-12-11 08:10] VITALS: TEMP 99.4; BMI 39.3
--- NOTE | 2018-12-11 08:35 | ED.PDOC ---
General ED Provider: Dr. MELLISSA MARRERO Chief Complaint: Abdominal Pain Stated Complaint: abdominal pain,SOB,microscopic hematuria and pyuria Time Seen by Physician: 08:25 Mode of Arrival: Walk-In Information Source: Patient Exam Limitations: No limitations Primary Care Provider: ANA NEGRETE Nursing and Triage Documentation Reviewed and Agree: Yes Does patient meet sepsis criteria?: No System Inflammatory Response Syndrome: Not Applicable Sepsis Protocol: For patient's 13 years and over: Temp is 96.8 and below OR 101 and greater Pulse >90 BPM Resp >20/minute Acutely Altered Mental Status Are patient's symptoms suggestive of a new infection, such as: -Pneumonia -Skin, Soft Tissue -Endocarditis -UTI -Bone, Joint Infection -Implantable Device -Acute Abdominal Infection -Wound Infection -Meningitis -Blood Stream Catheter Infection -Unknown GI Complaint Exam - Abdominal Pain Complaint/Exam Duration: since yesterady and some from last week Symptoms Are: Still present Timing: Intermittent Initial Severity: Moderate Current Severity: Moderate Location of Pain: Diffuse Radiates To: Reports: LLQ Character: Reports: Dull, Aching Aggravating: Reports: None Alleviating: Reports: Rest, Bowel movement Associated Signs and Symptoms: Reports: Constipation, Decreased appetite, Decreased activity Related History: Reports: Similar episode AAA Risk Factors: Reports: None Cardiac Risk Factors: Reports: None Ectopic Risk Factors: Reports: None Ovarian Torsion Risk Factors: Reports: None Surgical Obstruction Risk Factors: Reports: None Related Surgical History: Reports: None Abdominal Findings: Present: Abdominal distention Differential Diagnoses: Appendicitis, Bowel Obstruction, Constipation, Diverticulitis, Gastroenteritis Quality Indicator For Non-Traumatic Chest Pain/Syncope: EKG Performed Review of Systems - Review Of Systems Constitutional: Reports: Malaise Eyes: Reports: No symptoms Ears, Nose, Mouth, Throat: Reports: No symptoms Respiratory: Reports: No symptoms Cardiac: Reports: No symptoms GI: Reports: Abdomen distended, Abdominal pain : Reports: No symptoms Musculoskeletal: Reports: No symptoms Skin: Reports: No symptoms Neurological: Reports: No symptoms Endocrine: Reports: No symptoms Hematologic/Lymphatic: Reports: No symptoms All Other Systems: Reviewed and Negative Past Medical History - Past Medical History Previously Healthy: No Endocrine: Reports: DM 2, Dyslipidemia Cardiovascular: Reports: None Respiratory: Reports: COPD, Pneumonia Hematological: Reports: None Gastrointestinal: Reports: None Genitourinary: Reports: UTI, Kidney stones Neuro/Psych: Reports: None Musculoskeletal: Reports: None Cancer: Reports: None Last Menstrual Period: menopause Other Pertinent Past Medical History: BACK SURGERIES, KNEE REPLACEMENT.DM COPD - Surgical History General Surgical History: Reports: Orthopedic (KNEE REPLACEMENT), Back Surgery ( BACK SURGERIES), Unknown - Family History Family History: Reports: Unknown - Social History Smoking Status: Former smoker Hx Substance Use: No Alcohol Screening: None Physical Exam - Physical Exam Appearance: Ill-appearing Ill-appearing: Mild Pain Distress: Moderate Eyes: YRAN, EOMI, Conjunctiva clear ENT: Ears normal, Nose normal, Oropharynx normal Neck: Supple Respiratory: Airway patent, Breath sounds clear, Breath sounds equal Cardiovascular: RRR, Pulses normal, No rub, No murmur GI/: Soft, Nontender, No masses, Bowel sounds normal, No Organomegaly, Bowel sounds hypoactive Musculoskeletal: Normal strength, ROM intact, No edema, No calf tenderness Skin: Warm, Dry, Normal color Neurological: Sensation intact, Motor intact, Reflexes intact, Cranial nerves intact, Alert, Oriented Psychiatric: Affect appropriate Interpretation - Radiology Interpretation Radiology Interpretation By: Radiologist Radiology Results: Positive Exam Interpreted: CXR Xray Comments: questuinable lower lung nodule f/u w CT, Re-Evaluation - Re-Evaluation Time of Re-Evaluation: 09:53 (diverticulosis,UTI) Status: Unchanged Vital Signs Stable: Yes Pain Level: mild Lungs: Other Skin: Warm and Dry Neuro: Alert and Oriented X3 CV: RRR Additional Comments: Diabetes,COPD.,allergy to zithromax,ureterorenal calculosis with hematuria/ Critical Care Note - Critical Care Note Total Time (mins): 0 Course - Course Hematology/Chemistry: 12/11/18 08:52 12/11/18 08:52 Orders, Labs, Meds: Lab Review 12/11/18 12/11/18 12/11/18 08:20 08:52 08:52 WBC 12.32 H RBC 4.59 Hgb 13.9 Hct 41.1 MCV 89.5 MCH 30.3 MCHC 33.8 RDW Coeff of Saba 13.0 Plt Count 239 Immature Gran % (Auto) 0.3 Neut % (Auto) 76.6 Lymph % (Auto) 12.3 Phillips % (Auto) 6.8 Eos % (Auto) 3.0 Baso % (Auto) 1.0 Immature Gran # (Auto) 0.0 Neut # (Auto) 9.4 H Lymph # (Auto) 1.5 Phillips # (Auto) 0.8 Eos # (Auto) 0.4 Baso # (Auto) 0.1 Sodium 138.6 Potassium 4.02 Chloride 103.9 Carbon Dioxide 23.0 Anion Gap 15.72 BUN 15.7 Creatinine 0.67 Estimated GFR (MDRD) 90.00 BUN/Creatinine Ratio 23.43 Glucose 252.4 H Lactic Acid Calcium 9.43 Total Bilirubin 0.52 AST 24.9 ALT 28.9 Alkaline Phosphatase 65.0 Total Protein 6.64 Albumin 4.19 Globulin 2.45 Albumin/Globulin Ratio 1.71 Amylase 46.2 Lipase 97.4 Urine Color Yellow Urine Clarity Cloudy Urine pH 6.0 Ur Specific Temple 1.025 Urine Protein 1+ Urine Glucose (UA) 1+ Urine Ketones Negative Urine Blood 3+ Urine Nitrite Negative Urine Bilirubin Negative Urine Urobilinogen 0.2 Ur Leukocyte Esterase 2+ Urine Microscopic RBC Tntc Urine Microscopic WBC Tntc Ur Squamous Epith Cells 20-30 Calcium Oxalate Crystal 1+ Urine Bacteria 2+ 12/11/18 08:52 WBC RBC Hgb Hct MCV MCH MCHC RDW Coeff of Saba Plt Count Immature Gran % (Auto) Neut % (Auto) Lymph % (Auto) Phillips % (Auto) Eos % (Auto) Baso % (Auto) Immature Gran # (Auto) Neut # (Auto) Lymph # (Auto) Phillips # (Auto) Eos # (Auto) Baso # (Auto) Sodium Potassium Chloride Carbon Dioxide Anion Gap BUN Creatinine Estimated GFR (MDRD) BUN/Creatinine Ratio Glucose Lactic Acid 1.53 Calcium Total Bilirubin AST ALT Alkaline Phosphatase Total Protein Albumin Globulin Albumin/Globulin Ratio Amylase Lipase Urine Color Urine Clarity Urine pH Ur Specific Temple Urine Protein Urine Glucose (UA) Urine Ketones Urine Blood Urine Nitrite Urine Bilirubin Urine Urobilinogen Ur Leukocyte Esterase Urine Microscopic RBC Urine Microscopic WBC Ur Squamous Epith Cells Calcium Oxalate Crystal Urine Bacteria Orders Category Date Time Status EKG-(ED ONLY) Stat CARDIO 12/11/18 08:44 Completed NEBULIZER TREATMENT Stat CARDIO 12/11/18 10:04 Completed NEBULIZER TREATMENT Stat CARDIO 12/11/18 10:19 Completed NEBULIZER TREATMENT Stat CARDIO 12/11/18 12:29 Ordered NPO REMINDER: IMAGING ONCE CARE 12/11/18 08:42 Active NPO REMINDER: IMAGING ONCE CARE 12/11/18 09:47 Active ED IV/MEDIPORT/POWERPORT .ONCE EMERGENCY 12/11/18 08:42 Active OXYGEN [ED APPLY O2] .ONCE EMERGENCY 12/11/18 10:06 Active AMYLASE Stat LAB 12/11/18 08:52 Completed BLOOD CULTURE (ED ONLY) Stat LAB 12/11/18 08:52 Stop Req CBC W/ AUTO DIFF Stat LAB 12/11/18 08:52 Completed COMPREHENSIVE METABOLIC PANEL Stat LAB 12/11/18 08:52 Completed LACTIC ACID Stat LAB 12/11/18 08:52 Completed LIPASE Stat LAB 12/11/18 08:52 Completed OCCULT BLOOD, STOOL Stat LAB 12/11/18 08:44 Uncollected UA [URINALYSIS C & S IF INDICATED] Stat LAB 12/11/18 08:20 Completed URINE CULTURE Stat LAB 12/11/18 08:20 Received 0.9 % Sodium Chloride [Saline Flush] MEDS 12/11/18 08:42 Active 1 syr IVF PRN PRN Albuterol Sulfate 0.083% Neb [Albuterol 0.083% Neb] MEDS 12/11/18 10:03 Discontinued 1 vial NEB .STK-MED ONE Albuterol Sulfate 0.083% Neb [Albuterol 0.083% Neb] MEDS 12/11/18 10:02 Discontinued 1 vial NEB ONCE STA Albuterol Sulfate 0.083% Neb [Albuterol 0.083% Neb] MEDS 12/11/18 10:19 Discontinued 1 vial NEB ONCE STA Albuterol Sulfate 0.083% Neb [Albuterol 0.083% Neb] MEDS 12/11/18 12:28 Stat 1 vial NEB ONCE STA Ceftriaxone Sodium [Rocephin] MEDS 12/11/18 09:35 Discontinued 1 gm .ROUTE .STK-MED ONE Ceftriaxone Sodium [Rocephin] 1 gm MEDS 12/11/18 09:29 Discontinued 0.9 % Sodium Chloride [Sodium Chloride] 50 ml IV ONCE Hydromorphone HCl [Dilaudid 0.5 mg/0.5 ml Syringe] MEDS 12/11/18 09:42 Discontinued 0.5 mg IVP ONCE STA Methylprednisolone Sod Succ/Pf [Solu-Medrol 125 mg] MEDS 12/11/18 10:04 Discontinued 80 mg IVP ONCE STA Ondansetron HCl/Pf [Zofran 4 mg/2 ml] MEDS 12/11/18 09:42 Discontinued 4 mg IVP ONCE STA Sodium Chloride 0.9% [Sodium Chloride] 1,000 ml MEDS 12/11/18 08:43 Discontinued IV BOLUS CHEST, 1V AP ONLY Stat RADS 12/11/18 08:[address] ABDOMEN/PELVIS WO CONTRAST Stat RADS 12/11/18 08:[address] CHEST W/O CONTRAST Stat RADS 12/11/18 09:46 Completed Medications Generic Name Dose Route Start Last Admin Trade Name Freq PRN Reason Stop Dose Admin Sodium Chloride 1 syr 12/11/18 08:42 12/11/18 09:22 Saline Flush IVF 1 syr PRN PRN Administration To flush IV Discontinued Medications Generic Name Dose Route Start Last Admin Trade Name Freq PRN Reason Stop Dose Admin Albuterol Sulfate 1 vial 12/11/18 10:02 12/11/18 10:10 Albuterol 0.083% [facility] 12/11/18 10:03 1 vial ONCE STA Administration Albuterol Sulfate 1 vial 12/11/18 10:19 12/11/18 10:20 Albuterol 0.083% [facility] 12/11/18 10:20 1 vial ONCE STA Administration Albuterol Sulfate 1 vial 12/11/18 12:28 Albuterol 0.083% [facility] 12/11/18 12:29 ONCE STA Hydromorphone HCl 0.5 mg 12/11/18 09:42 12/11/18 10:56 Dilaudid 0.5 Mg/0.5 Ml Syringe IVP 12/11/18 09:43 0.5 mg ONCE STA Administration Sodium Chloride 1,000 mls @ 1,000 mls/hr 12/11/18 08:43 12/11/18 09:22 Sodium Chloride IV 12/11/18 09:42 1,000 mls/hr BOLUS STA Administration Ceftriaxone Sodium 1 gm/ 50 mls @ 75 mls/hr 12/11/18 09:29 12/11/18 09:38 Sodium Chloride IV 12/11/18 10:08 75 mls/hr ONCE STA Administration Methylprednisolone Sodium Succinate 80 mg 12/11/18 10:04 12/11/18 10:09 Solu-Medrol 125 Mg IVP 12/11/18 10:05 80 mg ONCE STA Administration Ondansetron HCl 4 mg 12/11/18 09:42 12/11/18 09:53 Zofran 4 Mg/2 Ml IVP 12/11/18 09:43 4 mg ONCE STA Administration Vital Signs: Temp Pulse Resp BP Pulse Ox 12/11/18 10:01 26 H 124/88 82 L 12/11/18 08:02 99.4 F 76 20 126/89 92 L Departure - Departure Time of Disposition: 12:31 Disposition: HOME SELF-CARE Discharge Problem: Renal stones Instructions: Kidney Stones (ED) Condition: Good Pt referred to PMD for follow-up: Yes IPMP verified?: No Additional Instructions: Macrodantin tab a 100 mg qid x 10 days Allergies/Adverse Reactions: Allergies azithromycin Adverse Reaction (Verified 12/11/18 08:12) ceftriaxone [From Rocephin] Adverse Reaction (Verified 12/11/18 10:01) Home Medications: Ambulatory Orders [place]-3 Fatty Acids/Fish Oil [Fish Oil 1,000 Mg Capsule] 1,000 each PO BID 02/20 Multivitamin [Multi-Vitamin Daily] 1 each PO DAILY 08/24/17 Disposition Discussed With: Patient
[2018-12-11] MEDS ORDERED: SODIUM CHLORIDE 1,000 ML IV STA ×2 (08:43→11:41)
[2018-12-11] MEDS ORDERED: ROCEPHIN 1 GM in SODIUM CHLORIDE 50 ML IV STA (09:29)
--- NOTE | 2018-12-11 09:29 | DI ---
EXAM: Single view of the chest. History: Chest pain and not pain. Comparison: Chest pain graph 09/10/2017 Findings: Heart size is within normal limits. No focal consolidation. Question left lower lobe janey g nodule. No appreciable pleural fluid and no pneumothorax. No acute osseous abnormalities. Impression: Question left lower lobe lung nodule. Recommend further evaluation with chest CT.
[2018-12-11] MEDS ORDERED: ROCEPHIN ONE (09:35)
[2018-12-11] MEDS ORDERED: DILAUDID 0.5 MG/0.5 ML SYRINGE IVP STA (09:42)
[2018-12-11] MEDS ORDERED: ZOFRAN 4 MG/2 ML IVP STA (09:42)
[2018-12-11 10:01] VITALS: BP 124/88
[2018-12-11] MEDS ORDERED: ALBUTEROL 0.083% NEB NEB STA ×3 (10:02→12:28)
[2018-12-11] MEDS ORDERED: ALBUTEROL 0.083% NEB NEB ONE (10:03)
[2018-12-11] MEDS ORDERED: SOLU-MEDROL 125 MG IVP STA (10:04)
--- NOTE | 2018-12-11 11:32 | CT ---
EXAM: CT of the chest without contrast History: Cough and not pain. Comparison: CT of and pelvis 12/11 2018, chest 18 09/08/2017 Technique: Multiplanar CT images through the thorax were obtained without the administration of IV c ontrast Findings: Heart size is normal. No pericardial effusion. No thoracic aortic aneurysm. No axillary lymphadenopathy. No pathologically enlarged mediastinal or hilar lymph nodes. No consolidation. N o pleural fluid and no pneumothorax. Chronic subsegmental atelectasis again seen within the lingula. No suspicious lung masses or lung nodules. For details in the upper abdomen, please see dedicated CT abdomen pelvis done on the same day. The l iver is fatty. Duodenal diverticulum. Left hydronephrosis with left perinephric stranding. No acut e osseous abnormalities. Impression: 1. No acute intrathoracic process. 2. Left hydronephrosis with left perinephric stranding. 3. Hepatic steatosis
--- NOTE | 2018-12-11 11:41 | CT ---
EXAM: CT ABDOMEN AND PELVIS HISTORY: Abdominal pain, hematuria TECHNIQUE: CT abdomen and pelvis without intravenous contrast. Images were reconstructed using 5 mm section thickness. Reformations were prepared. COMPARISON: 03/02/2018 FINDINGS: Liver is fatty. Liver size is upper limit normal with the right lobe at 16 cm. Spleen, gallbladder and pancreas are within normal limits. Normal adrenal glands. There is a proximal left ureteral margaret culus measuring about 6 x 9 x 9 mm lodged at the ureteropelvic junction causing mild to moderate hydr onephrosis. There is left perinephric fat stranding. There is a tiny 3 mm calculus within the left kidney. The ureters are otherwise clear. There is mild to moderate atherosclerotic disease. Probable tiny sliding hiatal hernia. What probably represents the appendix has no evidence of inflam mation. Bowel gas pattern is nonobstructive. There is mild distal colon diverticulosis. Urinary bl adder is within normal limits. Uterus appears normal. There is no ascites. No ventral abdominal wall hernia. Moderate degenerative changes of the spine are present. Lung base s are free of acute infiltrate. No pneumoperitoneum. IMPRESSION: 1. There is a 6 x 9 x 9 mm calculus lodged at the left ureteropelvic junction leading to mild to mod erate hydronephrosis. Left nephrolithiasis. Left perinephric fat stranding. 2. Fatty prominent sized liver. 3. Atherosclerosis. 4. Mild distal colon diverticulosis. 5. Probable tiny sliding hiatal hernia.
== END 2018-12-11 13:39 | disposition home or self-care (01) ==
LOC: ED 08:01
DX: N20.0 Calculus of kidney (principal); E11.9 Type 2 diabetes mellitus without complications; E78.5 Hyperlipidemia, unspecified; Z87.442 Personal history of urinary calculi; Z87.440 Personal history of urinary (tract) infections
CPT/HCPCS: 36415; 80053; 81001; 82150; 83605; 83690; 85025; 87040; 87086; 93005; 93010; 94640; 96361; 96365; 96375; 99283

== ENCOUNTER 2019-01-06 14:13 | Emergency (ER) ==
[2019-01-06 14:16] VITALS: BP 171/81; TEMP 98.5; BMI 39.1
--- NOTE | 2019-01-06 14:30 | ED.PDOC ---
General ED Provider: Dr. DANIEL HARTLEY MD Chief Complaint: Headache Stated Complaint: headache on top of head Time Seen by Physician: 14:20 Mode of Arrival: Walk-In Information Source: Patient Exam Limitations: No limitations Primary Care Provider: ANA NEGRETE Nursing and Triage Documentation Reviewed and Agree: Yes Does patient meet sepsis criteria?: No If yes, has appropriate treatment been initiated?: Yes System Inflammatory Response Syndrome: Not Applicable Sepsis Protocol: For patient's 13 years and over: Temp is 96.8 and below OR 101 and greater Pulse >90 BPM Resp >20/minute Acutely Altered Mental Status Are patient's symptoms suggestive of a new infection, such as: -Pneumonia -Skin, Soft Tissue -Endocarditis -UTI -Bone, Joint Infection -Implantable Device -Acute Abdominal Infection -Wound Infection -Meningitis -Blood Stream Catheter Infection -Unknown Review of Systems - Review Of Systems Constitutional: Reports: Other (occ headache) Eyes: Reports: No symptoms Ears, Nose, Mouth, Throat: Reports: No symptoms Respiratory: Reports: No symptoms Cardiac: Reports: No symptoms GI: Reports: No symptoms : Reports: No symptoms Musculoskeletal: Reports: No symptoms Skin: Reports: No symptoms Neurological: Reports: No symptoms Endocrine: Reports: No symptoms Hematologic/Lymphatic: Reports: No symptoms All Other Systems: Reviewed and Negative Past Medical History - Past Medical History Previously Healthy: No Endocrine: Reports: DM 2, Dyslipidemia Cardiovascular: Reports: None Respiratory: Reports: COPD, Pneumonia Hematological: Reports: None Gastrointestinal: Reports: None Genitourinary: Reports: UTI, Kidney stones Neuro/Psych: Reports: None Musculoskeletal: Reports: None Cancer: Reports: None Last Menstrual Period: NONE Other Pertinent Past Medical History: BACK SURGERIES, KNEE REPLACEMENT.DM COPD - Surgical History General Surgical History: Reports: Orthopedic (KNEE REPLACEMENT), Back Surgery ( BACK SURGERIES), Unknown - Family History Family History: Reports: Unknown - Social History Smoking Status: Former smoker Hx Substance Use: No Alcohol Screening: None Physical Exam - Physical Exam Appearance: Obese Pain Distress: Mild Eyes: RYAN, EOMI, Conjunctiva clear ENT: Ears normal, Nose normal, Oropharynx normal Respiratory: Airway patent, Breath sounds clear, Breath sounds equal, Respirations nonlabored Cardiovascular: RRR, Pulses normal, No rub, No murmur GI/: Soft, Nontender, No masses, Bowel sounds normal, No Organomegaly Musculoskeletal: Normal strength, ROM intact, No edema, No calf tenderness Skin: Warm, Dry, Normal color Neurological: Sensation intact, Motor intact, Reflexes intact, Cranial nerves intact, Alert, Oriented Psychiatric: Affect appropriate, Mood appropriate Critical Care Note - Critical Care Note Total Time (mins): 0 Course - Course Orders, Labs, Meds: Orders Category Date Time Status Ketorolac Tromethamine [Toradol] MEDS 01/06/19 14:28 Discontinued 60 mg IM ONCE STA Medications Discontinued Medications Generic Name Dose Route Start Last Admin Trade Name Raad PRN Reason Stop Dose Admin Ketorolac Tromethamine 60 mg 01/06/19 14:28 01/06/19 14:39 Toradol IM 01/06/19 14:29 60 mg ONCE STA Administration Vital Signs: Temp Pulse Resp BP Pulse Ox 01/06/19 14:13 98.5 F 84 22 171/81 H 90 L Departure - Departure Time of Disposition: 15:11 Disposition: HOME SELF-CARE Discharge Problem: Headache Qualifiers: Headache type: tension-type Headache chronicity pattern: acute headache Intractability: not intractable Qualified Code(s): G44.209 - Tension-type headache, unspecified, not intractable Instructions: Tension Headache (ED) Condition: Good Pt referred to PMD for follow-up: Yes IPMP verified?: No Allergies/Adverse Reactions: Allergies azithromycin Adverse Reaction (Verified 01/06/19 14:16) ceftriaxone [From Rocephin] Adverse Reaction (Verified 01/06/19 14:16) Home Medications: Ambulatory Orders [place]-3 Fatty Acids/Fish Oil [Fish Oil 1,000 Mg Capsule] 1,000 each PO BID 02/20 Multivitamin [Multi-Vitamin Daily] 1 each PO DAILY 08/24/17 Transfer Form Completed: No Disposition Discussed With: Patient
[2019-01-06] MEDS: TORADOL IM STA (14:39)
== END 2019-01-06 15:08 | disposition home or self-care (01) ==
LOC: ED 14:13
DX: G44.209 Tension-type headache, unspecified, not intractable (principal)
CPT/HCPCS: 96372; 99282